=== PATIENT | male | born 1970 | race Caucasian/White ===

== ENCOUNTER 2020-05-30 11:31 | Day surgery (SDC) | payer BC ==
[2020-05-30] MEDS ORDERED: LACTATED RINGERS 1,000 ML IV ONE ×2 (11:52→15:50)
[2020-05-30] MEDS ORDERED: MIDAZOLAM 2 MG/2 ML VIAL IVP ONE (15:08)
[2020-05-30] MEDS ORDERED: fentaNYL 250 MCG/5 ML VIAL IVP ONE (15:08)
[2020-05-30 15:54] VITALS: BP 112/64
== END 2020-05-30 11:32 | disposition home or self-care (01) ==
LOC: SDS 11:31
PROVIDERS: ATTEND Surgery
DX: Z12.11 Encounter for screening for malignant neoplasm of colon (principal); K64.8 Other hemorrhoids
CPT/HCPCS: 45378; J7120